=== PATIENT | female | born 1985 | race Caucasian/White ===

== ENCOUNTER → 2016-09-03 | Outpatient (CLI) | payer BC, OTHER ==
[2016-09-03 11:51] LABS: CHLORIDE,CL 102 mmol/L (98-110); SODIUM,NA 136 mmol/L (136-146)
== END | disposition home or self-care (01) ==
LOC: MW.CHFP 11:06
PROVIDERS: ATTEND Nurse Practitioner Family
DX: R10.31 Right lower quadrant pain (principal)
CPT/HCPCS: 36415; 80048; 81001; 85025

== ENCOUNTER → 2016-09-05 | Outpatient (CLI) | payer BC, OTHER ==
--- NOTE | 2016-09-05 17:01 | US ---
EXAMINATION: Transvaginal pelvic ultrasound HISTORY: Pain COMPARISON: None TECHNIQUE: Grayscale, color Doppler, and spectral Doppler images obtained transvaginally. FINDINGS: The uterus appears normal in size, contour, and echogenicity without a focal uterine mass. Endometrial stripe thickness is mildly prominent at 1.7 cm, correlate with menstrual cycle. Both ovaries are mildly prominent size however demonstrate normal color and spectral Doppler flow. S imple appearing cyst are noted bilaterally measuring up to 4 cm on the left and 2 cm on the right. N o suspicious adnexal masses. No significant free pelvic fluid. IMPRESSION: 1. Mildly prominent endometrial stripe thickness, correlate with menstrual cycle. 2. Bilateral simple appearing ovarian cysts.
== END ==
LOC: MW.US 13:57
PROVIDERS: ATTEND Nurse Practitioner Family
DX: R10.31 Right lower quadrant pain (principal)
CPT/HCPCS: 76830; 76830-26

== ENCOUNTER 2024-03-29 14:38 | Emergency (ER) | payer BC, OTHER ==
[2024-03-29 15:31] LABS: BASOPHILS ABSOLUTE AUTO 0.04 K/uL (0.00-0.20); BASOPHILS PERCENT AUTO 0.5 % (0.0-1.0); EOSINOPHILS ABSOLUTE AUTO 0.06 K/uL (0.00-0.45); EOSINOPHILS PERCENT AUTO 0.7 % (0.0-6.0); HEMATOCRIT 31.9 % (37.0-47.0); HEMOGLOBIN 10.2 g/dL (12.0-16.0); IMMATURE GRAN ABSOLUTE AUTO 0.04 K/uL (0.00-0.05); IMMATURE GRAN PERCENT AUTO 0.5 % (0.0-0.4); LYMPHOCYTES ABSOLUTE AUTO 1.36 K/uL (1.00-4.80); LYMPHOCYTES PERCENT AUTO 16.2 % (24.0-44.0); MEAN CORPUSCULAR HEMOGLOBIN 24.4 pg (28.0-32.0); MEAN CORPUSCULAR VOLUME 76.3 fL (83.0-99.0); MEAN PLATELET VOLUME 9.3 fL (9.4-12.3); MONOCYTES ABSOLUTE AUTO 0.95 K/uL (0.00-0.80); MONOCYTES PERCENT AUTO 11.3 % (0.0-8.0); NEUTROPHILS ABSOLUTE AUTO 5.97 K/uL (1.80-7.70); NEUTROPHILS PERCENT AUTO 70.8 % (41.0-71.0); PLATELET COUNT,PLT 262 K/uL (150-400); RED BLOOD CELL COUNT 4.18 M/uL (4.10-5.30); WHITE BLOOD CELL COUNT,WBC 8.42 K/uL (3.9-11.3)
[2024-03-29 15:57] LABS: A/G RATIO 1.1 (0.9-1.6); ALBUMIN 3.7 g/dL (3.4-5.0); BILIRUBIN TOTAL 0.5 mg/dL (0.2-1.0); CALCIUM 9.1 mg/dL (8.5-10.1); CREATININE 0.9 mg/dL (0.6-1.0); EST CRCL DRUG DOSING (CG) 98.76 mL/min; PROTEIN TOTAL,TP 7.1 g/dL (6.4-8.2)
[2024-03-29 17:16] VITALS: BP 134/85; PULSE 98
== END 2024-03-29 17:15 | disposition home or self-care (01) ==
LOC: MW.ED 14:38
DX: R10.9 Unspecified abdominal pain (principal)
CPT/HCPCS: 36415; 74176; 74176-26; 80053; 85025; 99284